=== PATIENT | female | born 1980 | race Hispanic/Latino ===

== ENCOUNTER 2019-08-18 05:32 | Day surgery (SDC) | payer BC ==
[2019-08-17 14:03] LABS: BASOPHILS % (AUTO) 0.4 % (0.0-5.0); EOSINOPHILS % (AUTO) 0.5 % (0.0-8.0); HEMATOCRIT 44.5 % (36-48); LYMPHOCYTES % (AUTO) 31.8 % (21.0-51.0); MEAN CORPUSCULAR HEMOGLOBIN 28.4 pg (27.0-33.0); MEAN CORPUSCULAR HGB CONC 32.6 g/dL (32.0-36.0); MEAN CORPUSCULAR VOLUME 87.3 fL (79-99); MONOCYTES % (AUTO) 6.6 % (3.0-13.0); NEUTROPHILS % (AUTO) 60.2 % (40.0-77.0); PLATELET COUNT (AUTO) 206 K/uL (130-400); RED CELL DISTRIBUTION WIDTH 12.3 % (11.0-15.5); WHITE BLOOD COUNT (AUTO) 7.8 K/uL (4.8-10.8)
[2019-08-17 14:28] VITALS: BP 110/84
[~2019-08-18] VITALS: Ht 156.2 cm; Wt 66.0 kg
[2019-08-18] VITALS (17 sets, daily range): BP systolic 112–126; BP diastolic 54–77
--- NOTE | 2019-08-18 05:56 | NUR ---
PT DENIES ALLERGY TO IBUPROFEN, STATES SHE USED TO IN HER TEENAGE YEARS, BUT NOW TAKES IBUPROFEN WITHOUT ANY PROBLEMS.
[2019-08-18] MEDS ORDERED: LACTATED RINGERS 1000ML 1,000 ML IV ONE (05:59)
[2019-08-18] MEDS ORDERED: SUCCINYLCHOLINE 200MG/10ML SYR ONE (06:33)
[2019-08-18] MEDS ORDERED: PROPOFOL 10 MG/ML 20ML VIAL IV ONE (06:33)
[2019-08-18] MEDS ORDERED: ONDANSETRON HCL 4 MG/2 ML VIAL ONE (06:33)
[2019-08-18] MEDS ORDERED: LIDOCAINE PF 2% 5ML ABBOJECT ONE (06:33)
[2019-08-18] MEDS ORDERED: FENTANYL CITRATE PF 50 MCG/1 ML 2ML VIAL ONE (06:34)
[2019-08-18] MEDS ORDERED: MIDAZOLAM HCL 1 MG/ML 2ML VIAL ONE (07:07)
[2019-08-18] MEDS ORDERED: EPHEDRINE SULFATE 50 MG/ML AMPULE ONE (07:32)
[2019-08-18] MEDS ORDERED: LACTATED RINGERS 1000ML 1,000 ML IV SCH (08:00)
[2019-08-18] MEDS ORDERED: MEPERIDINE-PF 25 MG/ML SYG ONE (08:09)
[2019-08-18] MEDS ORDERED: MORPHINE SULFATE 2 MG/ML 1ML SYG ONE (08:25)
== END 2019-08-18 09:55 | disposition home or self-care (01) ==
LOC: DAH 05:32
PROVIDERS: ATTEND Obstetrics & Gynecology
DX: Z30.2 Encounter for sterilization (principal); N73.6 Female pelvic peritoneal adhesions (postinfective)
CPT/HCPCS: 36415; 58670; 84703; 85025; 86850; 86900; 86901; A4215 ×2; A4221; A4222; A4223; A4351; A4452; A4606; A4663; A6260; C1769 ×2; J0330; J2001; J2175; J2250; J2405; J2704; J3010; J3490; J7120